=== PATIENT | male | born 1995 | race Caucasian/White ===

== ENCOUNTER 2020-06-16 10:40 | Emergency (ER) | payer OTHER ==
[2020-06-16 11:18] VITALS: BP 111/79; PULSE 59; TEMP 97.7; BMI 32.8
== END 2020-06-16 12:35 | disposition home or self-care (01) ==
LOC: FER 10:40
DX: Z43.1 Encounter for attention to gastrostomy (principal)
CPT/HCPCS: 74018-TC-FY; 99283-25